=== PATIENT | male | born 1935 | race Asian ===

== ENCOUNTER 2023-10-28 10:31 | Inpatient (IN) | payer OTHER ==
[~2023-10-28] VITALS: Ht 162.6 cm; Wt 67.6 kg
[2023-10-28 10:33] VITALS: BP 141/79; PULSE 69; RESP 18; TEMP 97.1; O2SAT 96
[2023-10-28 12:01] LABS: BASOPHILS % (AUTO) 0.4 % (0.0-2.0); EOSINOPHILS # (AUTO) 0.2 K/uL (0-0.4); EOSINOPHILS % (AUTO) 2.4 % (0.0-4.0); HEMATOCRIT 38.6 % (36-52); HEMOGLOBIN 13.4 g/dL (12.0-18.0); LYMPHOCYTES # (AUTO) 1.4 K/uL (2.0-11.5); MEAN CORPUSCULAR HEMOGLOBIN 32 pg (27-31); MEAN CORPUSCULAR HGB CONC 35 g/dL (33-37); MONOCYTES # (AUTO) 0.4 K/uL (0.8-1.0); MONOCYTES % (AUTO) 4.6 % (1.7-9.3); NEUTROPHILS # (AUTO) 6.5 K/uL (1.8-7.7); NEUTROPHILS % (AUTO) 76.6 % (42.2-75.2); PLATELET COUNT (AUTO) 314 K/uL (140-450); RED BLOOD CELL COUNT(AUTO) 4.15 MIL/uL (4.20-6.10); RED CELL DISTRIBUTION WIDTH 15.4 % (11.6-13.7); WHITE BLOOD COUNT (AUTO) 8.5 K/uL (4.8-10.8)
[2023-10-28 12:17] LABS: ANION GAP 14.3 (8-16); CALCIUM 8.7 mg/dL (8.5-10.1); CARBON DIOXIDE 25.2 mmol/L (21-32); CHLORIDE 102 mmol/L (98-107); CREATININE 1.1 mg/dL (0.6-1.3); GLUCOSE 145 mg/dL (74-106); POTASSIUM 4.5 mmol/L (3.5-5.1); SODIUM SERUM 137 mmol/L (136-145); UREA NITROGEN, BLOOD 11 mg/dL (7-18)
[2023-10-28 12:21] LABS: APPEARANCE,URINE CLEAR (CLEAR); BILIRUBIN,URINE NEGATIVE (NEGATIVE); BLOOD, URINE NEGATIVE (NEGATIVE); COLOR,URINE YELLOW (YELLOW); LEUKOCYTE ESTERASE ,URINE NEGATIVE (NEGATIVE); NITRITE, URINE NEGATIVE (NEGATIVE); PH,URINE 6.5 (5.0-9.0); PROTEIN,URINE NEGATIVE (NEGATIVE); UGLUCOSE NEGATIVE (NEGATIVE)
[2023-10-28 12:27] LABS: ALANINE AMINOTRANSFERASE 36 U/L (12-78); ALBUMIN 3.7 g/dL (3.4-5.0); ALKALINE PHOSPHATASE 85 U/L (50-136); ASPARTATE AMINOTRANSFERASE 28 U/L (15-37); BILIRUBIN,DIRECT 0.2 mg/dL (0.0-0.3); CREATINE KINASE, TOTAL 63 U/L (39-308); LIPASE 27 U/L (16-77); TOTAL BILIRUBIN 0.6 mg/dL (0.0-1.0); TOTAL PROTEIN, SERUM 8.5 g/dL (6.4-8.2)
[2023-10-28 12:44] LABS: FLU A ANTIGEN negative (NEGATIVE); FLU B ANTIGEN negative (NEGATIVE); RSV Negative (NEGATIVE)
[2023-10-28 13:18] LABS: INR 1.04 (0.8-1.2); PROTHROMBIN TIME 10.9 secs (10.8-13.4)
[2023-10-28] MEDS ORDERED: SITA50TA3 PO (15:30)
[2023-10-28] MEDS ORDERED: LOSA50TA57 PO (15:30)
[2023-10-28] MEDS ORDERED: TRAZ-466 PO (15:30)
[2023-10-28] MEDS ORDERED: ISOS30TA23 PO (15:30)
[2023-10-28] MEDS ORDERED: AMIO200T25 PO (15:30)
[2023-10-28] MEDS ORDERED: TAMS0.4C97 PO (15:30)
[2023-10-28] MEDS ORDERED: SIMV-30 PO (15:30)
[2023-10-28] MEDS ORDERED: AMLO10TA88 PO (15:30)
[2023-10-28] MEDS ORDERED: DONE5TAB6 PO (15:30)
[2023-10-28] MEDS ORDERED: CLOP75TA55 PO (15:30)
[2023-10-28] MEDS ORDERED: LEVO0.024 PO (15:30)
[2023-10-28] MEDS ORDERED: DONE5TAB34 PO (15:30)
[2023-10-28] MEDS ORDERED: ONDANSETRON 4 MG/2 ML VIAL IVP PRN (16:00)
[2023-10-28 17:32] LABS: BASOPHILS # (AUTO) 0.1 K/uL (0.00-0.22); BASOPHILS % (AUTO) 0.8 % (0.0-2.0); EOSINOPHILS # (AUTO) 0.3 K/uL (0-0.4); EOSINOPHILS % (AUTO) 4.3 % (0.0-4.0); HEMATOCRIT 37.8 % (36-52); LYMPHOCYTES # (AUTO) 1.6 K/uL (2.0-11.5); LYMPHOCYTES % (AUTO) 20.9 % (20.5-51.1); MEAN CORPUSCULAR HEMOGLOBIN 32 pg (27-31); MEAN CORPUSCULAR HGB CONC 34 g/dL (33-37); MONOCYTES # (AUTO) 0.5 K/uL (0.8-1.0); MONOCYTES % (AUTO) 5.9 % (1.7-9.3); NEUTROPHILS # (AUTO) 5.4 K/uL (1.8-7.7); NEUTROPHILS % (AUTO) 68.1 % (42.2-75.2); PLATELET COUNT (AUTO) 293 K/uL (140-450); RED BLOOD CELL COUNT(AUTO) 4.07 MIL/uL (4.20-6.10); RED CELL DISTRIBUTION WIDTH 14.9 % (11.6-13.7); WHITE BLOOD COUNT (AUTO) 7.8 K/uL (4.8-10.8)
[2023-10-28 18:18] VITALS: PULSE 71
[2023-10-28 18:27] VITALS: PULSE 72; RESP 18; O2SAT 97
[2023-10-28 19:00] VITALS: PULSE 72; RESP 18; O2SAT 97
[2023-10-28 20:00] VITALS: BP 133/59; PULSE 67; RESP 19; TEMP 97.4; O2SAT 95
[2023-10-28] MEDS: traZODone 50 MG TAB PO PRN (20:19)
[2023-10-28] MEDS ORDERED: DEXTROSE 50% 50 ML SYR IVP PRN (23:30)
[2023-10-29] MEDS: BLOOD GLUCOSE MONITORING 1 DEV DEV FS SCH (06:30)
[2023-10-29 06:31] LABS: ANION GAP 13.2 (8-16); CALCIUM 8.3 mg/dL (8.5-10.1); CHLORIDE 104 mmol/L (98-107); CREATININE 1.2 mg/dL (0.6-1.3); GLUCOSE 137 mg/dL (74-106); POTASSIUM 4.2 mmol/L (3.5-5.1); SODIUM SERUM 139 mmol/L (136-145); UREA NITROGEN, BLOOD 12 mg/dL (7-18)
[2023-10-29 08:00] VITALS: BP 133/58; PULSE 56; RESP 18; TEMP 97.5; O2SAT 97
[2023-10-29] MEDS: AMIODARONE 200 MG TAB PO SCH (08:19)
[2023-10-29] MEDS: DONEPEZIL 10 MG TAB PO SCH (08:19)
[2023-10-29] MEDS: CLOPIDOGREL 75 MG TAB PO SCH (08:20)
[2023-10-29] MEDS: TAMSULOSIN 0.4 MG CAP PO SCH (08:20)
[2023-10-29] MEDS: LOSARTAN 50 MG TAB PO SCH (08:20)
[2023-10-29] MEDS: ENOXAPARIN 30 MG/0.3 ML SYR SUBQ SCH (08:22)
[2023-10-29 09:18] VITALS: PULSE 56; RESP 18; O2SAT 97
[2023-10-29] MEDS: INSULIN LISPRO SLIDING SCALE 100 UNITS/ML VIAL SUBQ PRN (11:48)
[2023-10-29 16:45] VITALS: BP 117/53; PULSE 58; RESP 18; TEMP 97.7; O2SAT 96
[2023-10-29 20:00] VITALS: PULSE 63; RESP 16; O2SAT 93
[2023-10-29] MEDS: SIMVASTATIN 20 MG TAB PO SCH (20:15)
[2023-10-30] VITALS: BP 115/50; PULSE 63; RESP 16; TEMP 97.3; O2SAT 93
[2023-10-30 06:32] LABS: ANION GAP 12.7 (8-16); CALCIUM 8.6 mg/dL (8.5-10.1); CARBON DIOXIDE 25.6 mmol/L (21-32); CHLORIDE 104 mmol/L (98-107); CREATININE 1.4 mg/dL (0.6-1.3); GLUCOSE 144 mg/dL (74-106); POTASSIUM 4.3 mmol/L (3.5-5.1); SODIUM SERUM 138 mmol/L (136-145); UREA NITROGEN, BLOOD 21 mg/dL (7-18)
[2023-10-30 08:00] VITALS: BP 129/61; PULSE 60; PULSE 63; RESP 16; RESP 18; TEMP 97.2; O2SAT 95
[2023-10-30 16:00] VITALS: BP 140/79; PULSE 60; RESP 18; TEMP 98; O2SAT 96
[2023-10-30 20:00] VITALS: BP 127/38; PULSE 61; RESP 18; TEMP 97.6; O2SAT 98
[2023-10-31 05:48] LABS: ANION GAP 14.5 (8-16); CALCIUM 8.4 mg/dL (8.5-10.1); CARBON DIOXIDE 24.7 mmol/L (21-32); CHLORIDE 102 mmol/L (98-107); CREATININE 1.3 mg/dL (0.6-1.3); GLUCOSE 138 mg/dL (74-106); POTASSIUM 4.2 mmol/L (3.5-5.1); SODIUM SERUM 137 mmol/L (136-145); UREA NITROGEN, BLOOD 19 mg/dL (7-18)
[2023-10-31 08:00] VITALS: BP 154/73; PULSE 62; RESP 18; TEMP 97.3; O2SAT 96
[2023-10-31 10:47] VITALS: BP 127/38; PULSE 61; RESP 18; TEMP 97.6
== END 2023-10-31 13:54 | DRG 947 ==
LOC: MED 10:31 → INTOOBSV 15:56 → OBSVTOIN 15:56 → MTU 15:56
PROVIDERS: ADMIT Hospitalist; ATTEND Hospitalist
DX: R53.1 Weakness (principal); N17.0 Acute kidney failure with tubular necrosis; I69.354 Hemiplegia and hemiparesis following cerebral infarction affecting left non-dominant side; E03.9 Hypothyroidism, unspecified; I25.10 Atherosclerotic heart disease of native coronary artery without angina pectoris; E78.5 Hyperlipidemia, unspecified; I10 Essential (primary) hypertension; F01.50 Vascular dementia, unspecified severity, without behavioral disturbance, psychotic disturbance, mood disturbance, and anxiety; Z20.822 Contact with and (suspected) exposure to COVID-19; F17.200 Nicotine dependence, unspecified, uncomplicated; Z95.1 Presence of aortocoronary bypass graft
CPT/HCPCS: 36415; 70450; 71045; 71260; 80048; 80076; 81003; 82550; 82948; 83605; 83690; 83880; 84484; 85025; 85610; 85730; 87040; 87081; 87420; 93005; 93971; 97116; 97163-GP; 99285; J1650; J1815; Q0092; Q9967